=== PATIENT | male | born 1960 | race American Indian/Alaskan Native ===

== ENCOUNTER 2017-07-07 13:18 | Inpatient (IN) | payer MEDICARE ==
[2017-07-07 14:54] LABS: Basophils % (Auto) 0.4 % (0.0-1.8); Eosinophils % (Auto) 0.1 % (0.0-4.3); Hematocrit 38.9 % (35.5-45.6); Lymphocytes # (Auto) 1.2 K/mm3 (1.2-5.4); Lymphocytes % (Auto) 9.5 % (13.4-35.0); Mean Corpuscular HGB Conc 33 % (32-34); Mean Corpuscular Hemoglobin 33 pg (28-32); Mean Corpuscular Volume 98 fl (84-94); Monocytes # (Auto) 1.1 K/mm3 (0.0-0.8); Monocytes % (Auto) 8.5 % (0.0-7.3); Platelet Count 162 K/mm3 (140-440); Red Blood Count 3.98 M/mm3 (3.65-5.03); Red Cell Distribution Width 13.3 % (13.2-15.2)
--- NOTE | 2017-07-07 14:57 | XRay Report ---
FINAL REPORT EXAM: XR CHEST 1V AP HISTORY: DIFF BREATHING S/P FALL TECHNIQUE: Frontal chest x-ray. PRIORS: None currently available. FINDINGS: Cardiac silhouette is within normal limits. Aortic calcifications. There is no effusion. There is no pneumothorax. Focal ill-defined opacities in the right infrahilar region left retrocardiac region. Lungs appear hyperinflated and may be related to reactive airway disease or COPD. There are no suspicious osseous lesions. IMPRESSION: COPD. Atelectasis or pneumonic infiltrates in the lingula and right middle lobe.
[2017-07-07 15:04] LABS: BUN/Creatinine Ratio 18; Blood Urea Nitrogen 18 mg/dL (9-20); Calcium 9.1 mg/dL (8.4-10.2); Hemolysis Index 3
[2017-07-07] MEDS ORDERED: MORPHINE IV ONE (15:38)
--- NOTE | 2017-07-07 16:10 | XRay Report ---
FINAL REPORT EXAM: XR RIBS UNILAT 2V LT HISTORY: hypoxia, fall injury TECHNIQUE: Frontal chest x-ray. Two views left ribs. PRIORS: Chest x-ray July 07, 2017. FINDINGS: Cardiac silhouette is within normal limits. Aortic calcifications. There is no effusion. There is no pneumothorax. Focal ill-defined opacities in the right infrahilar and left retrocardiac region. Lungs appear hyperinflated and may be related to reactive airway disease or COPD. There are no suspicious osseous lesions. Six left posterior 6th-10th ribs are fracture but minimally displaced. IMPRESSION: COPD. Atelectasis or pneumonic infiltrates in the lingula and right middle lobe. Left rib fractures.
[2017-07-07] MEDS ORDERED: CLEOCIN 600 MG/50 mL 600 MG/50 ML BAG IV ONE (16:41)
[2017-07-07] MEDS ORDERED: LEVAQUIN 750MG/150ML 750 MG/150 ML BAG IV ONE (16:41)
--- NOTE | 2017-07-07 16:48 | Emergency Department Report ---
ED Shortness of Breath HPI - General Chief Complaint: Dyspnea/Respdistress Stated Complaint: TRENTON Time Seen by Provider: 07/07/17 14:08 Source: patient, EMS Mode of arrival: Wheelchair Limitations: Other - History of Present Illness Initial Comments: Patient is a 57-year-old black male who has a past medical history of dementia and HIV who is presenting with shortness of breath and left rib pain. Patient states he was walking yesterday and he fell. Patient believes that he tripped and fell I'm not that he became hypoxic and short of breath and fell. Patient is complaining of left-sided rib pain. Patient does have Jorgito wrap wrapped around his body at this time. Patient is denying any head trauma cough. Patient does states it does hurt to breathe however. Patient denies any fever nausea vomiting diarrhea abdominal pain at this time as well. - Related Data Allergies Allergy/AdvReac Type Severity Reaction Status Date / Time No Known Allergies Allergy Unverified 07/07/17 13:34 ED Review of Systems ROS: Stated complaint: TRENTON Other details as noted in HPI Comment: All other systems reviewed and negative ED Past Medical Hx - Past Medical History Previous Medical History?: Yes Hx Seizures: Yes Hx Dementia: Yes Hx HIV: Yes Additional medical history: ? BRAIN INFECTION - Social History Smoking Status: Never Smoker ED Physical Exam - General Limitations: Other General appearance: alert, in no apparent distress - Head Head exam: Present: atraumatic, normocephalic - Eye Eye exam: Present: normal appearance - ENT ENT exam: Present: mucous membranes moist - Neck Neck exam: Present: normal inspection - Respiratory Respiratory exam: Present: normal lung sounds bilaterally, chest wall tenderness (patient has chest wall tenderness to the left). Absent: respiratory distress, wheezes, rales, rhonchi - Cardiovascular Cardiovascular Exam: Present: regular rate, tachycardia. Absent: systolic murmur, diastolic murmur, rubs, gallop - GI/Abdominal GI/Abdominal exam: Present: soft, normal bowel sounds. Absent: distended, tenderness, guarding - Rectal Rectal exam: Present: deferred - Extremities Exam Extremities exam: Present: normal inspection - Back Exam Back exam: Present: normal inspection - Neurological Exam Neurological exam: Present: alert, oriented X3 - Psychiatric Psychiatric exam: Present: normal affect, normal mood - Skin Skin exam: Present: warm, dry, intact, normal color. Absent: rash ED Course Vital Signs 07/07/17 07/07/17 13:34 13:47 Temperature 98.9 F Pulse Rate 124 H Respiratory 16 16 Rate Blood Pressure 133/90 O2 Sat by Pulse 97 99 Oximetry ED Medical Decision Making - Lab Data Result diagrams: 07/07/17 14:46 07/07/17 14:46 Lab Results 07/07/17 07/07/17 07/07/17 Range/Units 14:46 14:46 14:46 WBC 12.7 H (4.5-11.0) K/mm3 RBC 3.98 (3.65-5.03) M/mm3 Hgb 13.0 (11.8-15.2) gm/dl Hct 38.9 (35.5-45.6) % MCV 98 H (84-94) fl MCH 33 H (28-32) pg MCHC 33 (32-34) % RDW 13.3 (13.2-15.2) % Plt Count 162 (140-440) K/mm3 Lymph % (Auto) 9.5 L (13.4-35.0) % Graves % (Auto) 8.5 H (0.0-7.3) % Eos % (Auto) 0.1 (0.0-4.3) % Baso % (Auto) 0.4 (0.0-1.8) % Lymph # 1.2 (1.2-5.4) K/mm3 Graves # 1.1 H (0.0-0.8) K/mm3 Eos # 0.0 (0.0-0.4) K/mm3 Baso # 0.0 (0.0-0.1) K/mm3 Seg Neutrophils % 81.5 H (40.0-70.0) % Seg Neutrophils # 10.4 H (1.8-7.7) K/mm3 D-Dimer 726.58 H (0-234) ng/mlDDU Sodium 139 (137-145) mmol/L Potassium 4.6 (3.6-5.0) mmol/L Chloride 101.1 (98-107) mmol/L Carbon Dioxide 29 (22-30) mmol/L Anion Gap 14 mmol/L BUN 18 (9-20) mg/dL Creatinine 1.0 (0.8-1.5) mg/dL Estimated GFR > 60 ml/min BUN/Creatinine Ratio 18 % Glucose 108 H (75-100) mg/dL Calcium 9.1 (8.4-10.2) mg/dL - Radiology Data Radiology results: report reviewed Chest x-ray with rib series shows posterior left-sided rib fractures that are minimally displaced on ribs 6 through 10. Patient also has a right middle lobe infiltrate consistent with pneumonia or possible atelectasis. - Medical Decision Making Patient is a 57-year-old male who suffered a fall yesterday and is hurt his ribs. Patient was more hypoxic than what I would suspect from simple rib fractures before x-rays were done and that showed that the patient also has a possible pneumonic infiltrate as well. The patient's d-dimer also slightly elevated patient will undergo CT scan to rule out additional pathology. Patient lives 96% on 2 L of oxygen and is comfortable after administration of pain meds. Patient because of the severe hypoxia will be admitted to the hospital under Dr. Pride. Patient will undergo pain control as well as along PT to improve his oxygenation. Critical Care Time: Yes Critical care time in (mins) excluding proc time.: 30 Critical care attestation.: If time is entered above; I have spent that time in minutes in the direct care of this critically ill patient, excluding procedure time. ED Disposition Clinical Impression: Hypoxia Ribs, multiple fractures Qualifiers: Encounter type: initial encounter Fracture type: closed Laterality: left Qualified Code(s): S22.42XA - Multiple fractures of ribs, left side, initial encounter for closed fracture Pneumonia Qualifiers: Pneumonia type: due to unspecified organism Laterality: right Lung location: middle lobe of lung Qualified Code(s): J18.1 - Lobar pneumonia, unspecified organism Disposition: OP ADMIT IP TO THIS HOSP Is pt being admited?: Yes Does the pt Need Aspirin: No Condition: Stable Instructions: Bacterial Pneumonia (ED) Referrals: PRIMARY CARE, [Primary Care Provider] - 3-5 Days
--- NOTE | 2017-07-07 16:49 | History and Physical Report ---
History of Present Illness Chief complaint: I cant breathe History of present illness: 57 YO Male with Seizure DO, Dementia, AIDS with unknown CD4 count presents to ED for evaluation. Pt in confused and unable to provide detailed history. Pt provides limited history. Pt states that he was walking yesterday and fell down. Pt believes that he tripped, but is unable to recall the incident. Pt states that he has difficulty breathing, but is unable to recall the onset of symptoms. EMS notified, and upon arrival the patient was found to have hypoxic respiratory failure and signs of trauma to the left posterior chest. Pt transported to [facility] for further care and evaluation. Pt seen and evaluated in ED and found to have acute hypoxemic respiratory failure as well as sepsis, secondary to pneumonia, and Posterior left rib fractures. No reports of fever, chills, palpitations, NVD, productive cough, recent ill contacts. Past History Past Medical History: HIV/AIDS, seizures, other (Dementia) Past Surgical History: No surgical history, Other (reviewed) Social history: single. denies: smoking, alcohol abuse, prescription drug abuse Family history: hypertension Medications and Allergies Allergies Allergy/AdvReac Type Severity Reaction Status Date / Time No Known Allergies Allergy Unverified 07/07/17 13:34 Active Meds: Active Medications Clindamycin HCl (Cleocin 600 Mg/50 Ml) 600 mg in 50 mls @ 100 mls/hr IV ONCE ONE Stop: 07/07/17 17:10 Levofloxacin/Dextrose (Levaquin 750mg/150ml) 750 mg in 150 mls @ 100 mls/hr IV ONCE ONE Stop: 07/07/17 18:10 Review of Systems ROS unobtainable: due to mental status Exam - Constitutional Vitals: Temp Pulse Resp BP Pulse Ox 98.9 F 124 H 16 133/90 99 07/07/17 13:34 07/07/17 13:34 07/07/17 13:47 07/07/17 13:34 07/07/17 13:47 General appearance: Present: mild distress, cachectic - EENT Eyes: Present: PERRL ENT: hearing intact, clear oral mucosa - Neck Neck: Present: supple, normal ROM - Respiratory Respiratory: bilateral: diminished, rhonchi - Cardiovascular Rhythm: other (tachycardic) Heart Sounds: Present: S1 & S2. Absent: rub, click - Extremities Extremities: pulses symmetrical, No edema Peripheral Pulses: abnormal (capillary refill greater than 3.6 seconds) - Abdominal Male genitourinary: Present: normal - Integumentary Integumentary: Present: clear, dry, clammy, decreased turgor - Musculoskeletal Musculoskeletal: generalized weakness - Psychiatric Psychiatric: no intact judgment & insight, no memory intact - Neurologic Neurologic: moves all extremities, no gait normal Results - Labs CBC & Chem 7: 07/07/17 14:46 07/07/17 14:46 Labs: Abnormal lab results 07/07/17 07/07/17 07/07/17 Range/Units 14:46 14:46 14:46 WBC 12.7 H (4.5-11.0) K/mm3 MCV 98 H (84-94) fl MCH 33 H (28-32) pg Lymph % (Auto) 9.5 L (13.4-35.0) % Donley % (Auto) 8.5 H (0.0-7.3) % Donley # 1.1 H (0.0-0.8) K/mm3 Seg Neutrophils % 81.5 H (40.0-70.0) % Seg Neutrophils # 10.4 H (1.8-7.7) K/mm3 D-Dimer 726.58 H (0-234) ng/mlDDU Glucose 108 H (75-100) mg/dL Assessment and Plan - Patient Problems (1) Sepsis Current Visit: Yes Status: Acute Plan to address problem: IV antibiotics, Blood cultures, urinalysis, serial lactic acid level, IVF resuscitation, monitor uop q shift, (2) Respiratory failure Current Visit: Yes Status: Acute Qualifiers: Respiratory failure complication: hypoxia Plan to address problem: Supplemental oxygen, nebulizer therapy, NIPPV as clinically indicated, incentive spirometry (3) Pneumonia Current Visit: Yes Status: Acute Qualifiers: Pneumonia type: due to unspecified organism Laterality: right Lung location: middle lobe of lung Qualified Code(s): J18.1 - Lobar pneumonia, unspecified organism Plan to address problem: RLL Pneumonia, IV antibiotics, supplemental oxygen, blood cultures, (4) Ribs, multiple fractures Current Visit: Yes Status: Acute Qualifiers: Encounter type: initial encounter Fracture type: closed Laterality: left Qualified Code(s): S22.42XA - Multiple fractures of ribs, left side, initial encounter for closed fracture Plan to address problem: Pain control, supportive care, incentive spirometry, early ambulation. (5) HIV (human immunodeficiency virus infection) Current Visit: Yes Status: Acute Plan to address problem: continue antiretroviral therapy, (6) Encephalopathy Current Visit: Yes Status: Acute Plan to address problem: CT head, serial lactic acid, neuro checks, (7) DVT prophylaxis Current Visit: Yes Status: Acute Plan to address problem: scd to ble while in bed
[2017-07-07] MEDS ORDERED: SODIUM CHLORIDE FLUSH SYRINGE 10 ML IV PRN (16:50)
[2017-07-07] MEDS ORDERED: NACL 0.9% 1000 ML IV ONE (16:50)
[2017-07-07] MEDS ORDERED: TYLENOL PO PRN (16:50)
[2017-07-07] MEDS ORDERED: VANCOMYCIN VIAL IV ONE (16:50)
[2017-07-07] MEDS ORDERED: ZOFRAN IV PRN (16:50)
[2017-07-07] MEDS ORDERED: PROVENTIL IH PRN (16:50)
[2017-07-07] MEDS ORDERED: VANCOMYCIN PHARMACY TO DOSE IV SCH (17:00)
[2017-07-07] MEDS ORDERED: VANCOMYCIN 1,250 MG in NACL 0.9% 250ML 250 ML IV ONE (18:00)
--- NOTE | 2017-07-07 18:48 | Cat Scan Report ---
FINAL REPORT PROCEDURE: CT HEAD/BRAIN WO CON TECHNIQUE: Computerized tomography of the head was performed without contrast material. HISTORY: confusion COMPARISON: No prior studies are available for comparison. FINDINGS: Brain: There is no evidence of intracranial hemorrhage. No parenchymal hemorrhage is seen. No mass lesions or mass effect is identified. No abnormal extra-axial fluid collections or masses are seen. There is some decreased density seen in the periventricular white matter without mass effect. This is fairly symmetric and does not exhibit any mass effect consistent with gliosis probably on the basis of microvascular disease or white matter changes of aging. Ventricles: The ventricles, sulcal pattern and fissures are prominent consistent with atrophy. This is mildly asymmetric, more prominent in the right temporal right parietal and right occipital lobe. Bones: No evidence of acute fracture. Paranasal sinuses: There is opacification the left maxillary sinus and most of the ethmoid air cells. Nodular mucosal thickening visualized inferiorly in the right maxillary sinus. Frontal sinuses are partially opacified as well. There is mucosal thickening and frothy mucous in the right side of the sphenoid sinus and mild mucosal thickening in the left side of the sphenoid sinus. Mastoid air cells: clear IMPRESSION: There is evidence of moderate atrophy, mildly asymmetric more prominent on the right than the left. No acute intracranial abnormalities are identified. Extensive paranasal sinus disease as described.
--- NOTE | 2017-07-07 19:11 | Cat Scan Report ---
FINAL REPORT PROCEDURE: CT ANGIO CHEST TECHNIQUE: Computerized tomographic angiography of the chest was performed during the IV injection of iodinated nonionic contrast including image processing. The image data was postprocessed using 2-dimensional multiplanar reformatted (MPR) and 3-dimensional (MIP and/or volume rendered) techniques. HISTORY: fall chest wall trauma, hypoxia before fall, evaluate pulmonary embolus COMPARISON: No prior studies are available for comparison. FINDINGS: Pulmonary outflow tract, right and left main pulmonary arteries and their proximal branches: Clear, no filling defects seen to suggest pulmonary embolus. Pericardium: No evidence of pericardial effusion. Thoracic aorta: Atherosclerotic changes are visualized. No evidence of aneurysmal dilatation or dissection. Coronary arteries: Are unremarkable. Mediastinum and hilar regions: Nonspecific subcentimeter lymph nodes are visualized. No pathologically enlarged lymph nodes or masses are identified. Lung Box: Moderate diffuse emphysematous changes are present bilaterally. There is patchy parenchymal density visualized in the right lower lobe. Pneumonia suspected. Atelectasis could present this manner. No effusions are identified. Adjacent to the suspected infiltrate there are moderate-sized bulla present. Upper abdomen: Nonobstructing renal calculi are visualized in both kidneys. The entire kidneys are not visualized. Other: There is mild deformity of the left 6th and 7th and 8th ribs laterally which appear to represent mildly displaced fractures. There also appears to be a nondisplaced fracture through the lateral aspect of the left 5th rib. No other fractures are identified. There is moderate mid thoracic scoliosis convex to the right. IMPRESSION: No evidence of pulmonary embolus. Multiple left rib fractures as described. Patchy alveolar density right lower lobe suspicious for pneumonia. Atelectasis could present in this manner. Moderate emphysematous changes are present. Nonobstructing renal calculi visualized in both kidneys, the largest is on the right measuring up to 5.9 millimeters.
[2017-07-07] MEDS: SODIUM CHLORIDE FLUSH SYRINGE 10 ML IV SCH (22:28)
[2017-07-08] MEDS: PERCOCET 5/325 PO PRN ×3 (05:32→21:22)
[2017-07-08] MEDS: TYLENOL PO PRN ×3 (05:32→23:18)
[2017-07-08] MEDS ORDERED: VANCOMYCIN/NS 1 GM/250 ML 1 GM/250 ML BAG IV SCH (06:00)
[2017-07-08] MEDS ORDERED: VANCOMYCIN/0.45 NS 1 GM/250 ML 1 GM/250 ML BAG IV SCH (06:00)
--- NOTE | 2017-07-08 08:55 | Progress Note ---
Assessment and Plan Assessment and plan: Sepsis IV antibiotics, Blood cultures, urinalysis, serial lactic acid level, IVF resuscitation, monitor uop q shift. Consult infectious disease. Respiratory failure Supplemental oxygen, nebulizer therapy, NIPPV as clinically indicated, incentive spirometry Pneumonia RLL Pneumonia, IV antibiotics, supplemental oxygen, blood cultures, Ribs, multiple fractures Pain control, supportive care, incentive spirometry, early ambulation. HIV (human immunodeficiency virus infection) continue antiretroviral therapy, Toxic metabolic Encephalopathy CT head negative, serial lactic acid, continued neuro checks, DVT prophylaxis scd to ble while in bed History Interval history: No new complaints. Hospitalist Physical - Constitutional Vitals: Temp Pulse Resp BP Pulse Ox 102.9 F H 125 H 18 99/70 96 07/08/17 07:43 07/08/17 07:43 07/08/17 07:43 07/08/17 07:43 07/08/17 07:43 General appearance: Present: no acute distress, cachectic - EENT Eyes: Present: PERRL, EOM intact ENT: hearing intact, clear oral mucosa, dentition normal - Neck Neck: Present: supple, normal ROM - Respiratory Respiratory effort: normal Respiratory: bilateral: CTA - Cardiovascular Rhythm: regular Heart Sounds: Present: S1 & S2. Absent: gallop, rub - Extremities Extremities: no ischemia, No edema, Full ROM - Abdominal General gastrointestinal: soft, non-tender, non-distended, normal bowel sounds - Integumentary Integumentary: Present: clear, warm, dry - Neurologic Neurologic: CNII-XII intact, moves all extremities Results - Labs CBC & Chem 7: 07/07/17 14:46 07/07/17 14:46 Labs: Laboratory Last Values WBC 12.7 K/mm3 (4.5-11.0) H 07/07/17 14:46 RBC 3.98 M/mm3 (3.65-5.03) 07/07/17 14:46 Hgb 13.0 gm/dl (11.8-15.2) 07/07/17 14:46 Hct 38.9 % (35.5-45.6) 07/07/17 14:46 MCV 98 fl (84-94) H 07/07/17 14:46 MCH 33 pg (28-32) H 07/07/17 14:46 MCHC 33 % (32-34) 07/07/17 14:46 RDW 13.3 % (13.2-15.2) 07/07/17 14:46 Plt Count 162 K/mm3 (140-440) 07/07/17 14:46 Lymph % (Auto) 9.5 % (13.4-35.0) L 07/07/17 14:46 Loving % (Auto) 8.5 % (0.0-7.3) H 07/07/17 14:46 Eos % (Auto) 0.1 % (0.0-4.3) 07/07/17 14:46 Baso % (Auto) 0.4 % (0.0-1.8) 07/07/17 14:46 Lymph # 1.2 K/mm3 (1.2-5.4) 07/07/17 14:46 Loving # 1.1 K/mm3 (0.0-0.8) H 07/07/17 14:46 Eos # 0.0 K/mm3 (0.0-0.4) 07/07/17 14:46 Baso # 0.0 K/mm3 (0.0-0.1) 07/07/17 14:46 Seg Neutrophils % 81.5 % (40.0-70.0) H 07/07/17 14:46 Seg Neutrophils # 10.4 K/mm3 (1.8-7.7) H 07/07/17 14:46 D-Dimer 726.58 ng/mlDDU (0-234) H 07/07/17 14:46 Sodium 139 mmol/L (137-145) 07/07/17 14:46 Potassium 4.6 mmol/L (3.6-5.0) 07/07/17 14:46 Chloride 101.1 mmol/L (98-107) 07/07/17 14:46 Carbon Dioxide 29 mmol/L (22-30) 07/07/17 14:46 Anion Gap 14 mmol/L 07/07/17 14:46 BUN 18 mg/dL (9-20) 07/07/17 14:46 Creatinine 1.0 mg/dL (0.8-1.5) 07/07/17 14:46 Estimated GFR > 60 ml/min 07/07/17 14:46 BUN/Creatinine Ratio 18 % 07/07/17 14:46 Glucose 108 mg/dL (75-100) H 07/07/17 14:46 Lactic Acid 1.00 mmol/L (0.7-2.0) 07/08/17 00:32 Calcium 9.1 mg/dL (8.4-10.2) 07/07/17 14:46
[2017-07-08] MEDS ORDERED: ROCEPHIN/NS 2 GM/100 ML 2 GM/100 ML BAG IV SCH (10:00)
[2017-07-08] MEDS: SODIUM CHLORIDE FLUSH SYRINGE 10 ML IV SCH ×2 (10:08→21:22)
[2017-07-08] MEDS: ZITHROMAX 500 MG in NACL 0.9% 250ML 250 ML IV SCH (11:41)
[2017-07-08] MEDS: cefTRIAXone 2 GM in NACL 0.9% 20 ML IV SCH (11:41)
[2017-07-08] MEDS ORDERED: Fluarix Quad 2017-2018(36 MOS+ IM ONE (12:00)
[2017-07-08] MEDS ORDERED: PNEUMOVAX 23 IM ONE (12:00)
--- NOTE | 2017-07-08 16:53 | Consultation ---
History of Present Illness - Reason for Consult Consult date: 07/08/17 fever Requesting physician: SONNY CASE - History of Present Illness 57 years old male with history of Seizure DO, Dementia, AIDS with unknown CD4 count (patient is currently confused and cannot provide details); admitted on due to AMS / confusion for a week and a fall to the floor hitting his left chest a week ago. he is c/o severe left sided chest pain upon inspiration. EMS notified, and upon arrival the patient was found to have hypoxic respiratory failure and signs of trauma to the left posterior chest. In the ED, initial temperature was 98.9, heart rate 119, respirations 15, O2 sat 99, blood pressure 133/90. Temperature went up to 102.7. Initial white count 12.7. Hemoglobin 13. Platelets 167. Creatinine 1. Lactic acid 8.8. D- dimer is 726. CT of the chest showed no PE, multiple left rib fractures. Patchy alveolar infiltrate in the right lower lobe. Nonobstructive renal calculi bilaterally. Neck CT of the head showed atrophy and extensive perinasal sinusitis. Microbiology: Blood cultures: 07/07 ngtd Current Antimicrobials: azithromycin vancomycin ceftriaxone Previous Antimicrobials: Past History Past Medical History: HIV/AIDS, seizures, other (Dementia) Past Surgical History: No surgical history, Other (reviewed) Social history: single. denies: smoking, alcohol abuse, prescription drug abuse Family history: hypertension Medications and Allergies Allergies Allergy/AdvReac Type Severity Reaction Status Date / Time No Known Allergies Allergy Unverified 07/07/17 13:34 Active Meds: Active Medications Acetaminophen (Tylenol) 650 mg PO Q4H PRN PRN Reason: Pain MILD(1-3)/Fever >100.5/RENAE Last Admin: 07/08/17 09:55 Dose: 650 mg Albuterol (Proventil) 2.5 mg IH Q4HRT PRN PRN Reason: Shortness Of Breath Azithromycin 500 mg/ Sodium (Chloride) 250 mls @ 250 mls/hr IV Q24HR MIKE Last Admin: 07/08/17 11:41 Dose: 250 mls/hr Ceftriaxone Sodium 2 gm/ (Sodium Chloride) 20 mls @ 2 mls/min IV Q24HR MIKE Last Admin: 07/08/17 11:41 Dose: 2 mls/min Vancomycin HCl (Vancomycin/0.45 Ns 1 Gm/250 Ml) 1 gm in 250 mls @ 167.007 mls/ hr IV Q18H [facility] Oxycodone/Acetaminophen (Percocet 5/325) 1 tab PO Q4H PRN PRN Reason: Pain, Moderate (4-6) Last Admin: 07/08/17 14:55 Dose: 1 tab Sodium Chloride (Sodium Chloride Flush Syringe 10 Ml) 10 ml IV BID MIKE Last Admin: 07/08/17 10:08 Dose: 10 ml Sodium Chloride (Sodium Chloride Flush Syringe 10 Ml) 10 ml IV PRN PRN PRN Reason: LINE FLUSH Vancomycin HCl (Vancomycin Pharmacy To Dose) 1 each IV PKCONSULT MIKE Review of Systems ROS unobtainable: due to mental status Physical Examination - Physical Exam Narrative exam: General appearance: Alert in NAD, conversant Eyes: anicteric sclerae, moist conjunctivae; no lid-lag; PERRLA HENT: Atraumatic; oropharynx clear edentulous Neck: Trachea midline; supple, no thyromegaly or lymphadenopathy Lungs: scattered rhonchi, very tender left chest CV: RRR, Abdomen: Soft, +TTP diffusely; no masses or hepatosplenomegaly Extremities: No peripheral edema or extremity lymphadenopathy Skin: Normal temperature, turgor and texture; no rash, ulcers or subcutaneous nodules Psych: Appropriate affect, confused. Neuro: alert and oriented x2. Moving all extermities Lines: No CVL / PICC - Constitutional Vitals: Vital Signs Temp Pulse Resp BP Pulse Ox 102.9 F H 125 H 18 99/70 96 07/08/17 07:43 07/08/17 07:43 07/08/17 07:43 07/08/17 07:43 07/08/17 07:43 Temperature -Last 24 Hours Temperature 102.9 F Temperature 100.7 F Temperature 102.7 F Temperature 99.5 F Results - Labs CBC & Chem 7: 07/07/17 14:46 07/07/17 14:46 Assessment and Plan Assessment: 1) Sepsis: Present on admission, manifested by fever, tachycardia, leukocytosis , increased lactate. Etiology most likely pneumonia +/- chest trauma ? opportunistic infections 2) RLL Pneumonia: CAP? post trauma pneumonia? 3) Chest trauma after a fall / multiple rib fractures / lung contusion 4) AIDS: unknown CD/VL 5) Bilateral kidney stones non obstructed 6) Cardona sinusitis Plan: -follow-up blood cultures -obtain C-reactive protein (CRP) -continue ceftriaxone and azithromycin -stop vanco -obtain CD4/VL -obtain AFB-blood cx and cryptococcal serum antigen Thank you for your consultation, will follow up with you. Karley Lebron MD Infectious Diseases Specialist [facility] ([facility] M [phone] O [phone]
[2017-07-09] MEDS ORDERED: VANCOMYCIN/0.45 NS 1 GM/250 ML 1 GM/250 ML BAG IV SCH
[2017-07-09] MEDS: PERCOCET 5/325 PO PRN ×3 (02:49→18:06)
[2017-07-09 06:58] LABS: Basophils % (Auto) 0.3 % (0.0-1.8); Eosinophils # (Auto) 0.2 K/mm3 (0.0-0.4); Eosinophils % (Auto) 1.2 % (0.0-4.3); Hematocrit 39.8 % (35.5-45.6); Hemoglobin 13.1 gm/dl (11.8-15.2); Lymphocytes # (Auto) 1.7 K/mm3 (1.2-5.4); Mean Corpuscular HGB Conc 33 % (32-34); Mean Corpuscular Hemoglobin 33 pg (28-32); Mean Corpuscular Volume 100 fl (84-94); Monocytes # (Auto) 1.3 K/mm3 (0.0-0.8); Monocytes % (Auto) 9.7 % (0.0-7.3); Platelet Count 148 K/mm3 (140-440); Red Blood Count 3.99 M/mm3 (3.65-5.03); Red Cell Distribution Width 13.4 % (13.2-15.2)
[2017-07-09 07:26] LABS: BUN/Creatinine Ratio 20; Blood Urea Nitrogen 20 mg/dL (9-20); Calcium 8.6 mg/dL (8.4-10.2); Hemolysis Index 17
[2017-07-09] MEDS ORDERED: ATIVAN IV ONE (09:20)
[2017-07-09] MEDS ORDERED: LOPRESSOR IV ONE (09:53)
--- NOTE | 2017-07-09 10:19 | Progress Note ---
History Interval history: Patient seen and examined medical records reviewed Patient is chronically ill-looking cachectic, unresponsive Tachycardic, possible SVT and and respiratory distress Patient received adenosine , amiodarone With no significant improvement Cardiology was consulted, and medications followed Later patient briefly responded to very simple questions Vital signs reviewed Hospitalist Physical - Constitutional Vitals: Temp Pulse Resp BP Pulse Ox 98.4 F 159 H 16 102/71 97 07/09/17 09:55 07/09/17 09:55 07/09/17 09:29 07/09/17 09:55 07/09/17 09:55 General appearance: Present: no acute distress, cachectic Results - Labs CBC & Chem 7: 07/09/17 06:43 07/09/17 06:43 Labs: Laboratory Last Values WBC 13.8 K/mm3 (4.5-11.0) H 07/09/17 06:43 RBC 3.99 M/mm3 (3.65-5.03) 07/09/17 06:43 Hgb 13.1 gm/dl (11.8-15.2) 07/09/17 06:43 Hct 39.8 % (35.5-45.6) 07/09/17 06:43 MCV 100 fl (84-94) H 07/09/17 06:43 MCH 33 pg (28-32) H 07/09/17 06:43 MCHC 33 % (32-34) 07/09/17 06:43 RDW 13.4 % (13.2-15.2) 07/09/17 06:43 Plt Count 148 K/mm3 (140-440) 07/09/17 06:43 Lymph % (Auto) 12.0 % (13.4-35.0) L 07/09/17 06:43 Parmer % (Auto) 9.7 % (0.0-7.3) H 07/09/17 06:43 Eos % (Auto) 1.2 % (0.0-4.3) 07/09/17 06:43 Baso % (Auto) 0.3 % (0.0-1.8) 07/09/17 06:43 Lymph # 1.7 K/mm3 (1.2-5.4) 07/09/17 06:43 Parmer # 1.3 K/mm3 (0.0-0.8) H 07/09/17 06:43 Eos # 0.2 K/mm3 (0.0-0.4) 07/09/17 06:43 Baso # 0.0 K/mm3 (0.0-0.1) 07/09/17 06:43 Seg Neutrophils % 76.8 % (40.0-70.0) H 07/09/17 06:43 Seg Neutrophils # 10.6 K/mm3 (1.8-7.7) H 07/09/17 06:43 D-Dimer 726.58 ng/mlDDU (0-234) H 07/07/17 14:46 Sodium 139 mmol/L (137-145) 07/09/17 06:43 Potassium 4.4 mmol/L (3.6-5.0) 07/09/17 06:43 Chloride 101.1 mmol/L (98-107) 07/09/17 06:43 Carbon Dioxide 28 mmol/L (22-30) 07/09/17 06:43 Anion Gap 14 mmol/L 07/09/17 06:43 BUN 20 mg/dL (9-20) 07/09/17 06:43 Creatinine 1.0 mg/dL (0.8-1.5) 07/09/17 06:43 Estimated GFR > 60 ml/min 07/09/17 06:43 BUN/Creatinine Ratio 20 % 07/09/17 06:43 Glucose 97 mg/dL (75-100) 07/09/17 06:43 Lactic Acid 1.00 mmol/L (0.7-2.0) 07/08/17 00:32 Calcium 8.6 mg/dL (8.4-10.2) 07/09/17 06:43 C-Reactive Protein 16.80 mg/dL (0.00-1.30) H 07/08/17 20:27
[2017-07-09] MEDS ORDERED: ATIVAN IV PRN (11:00)
[2017-07-09] MEDS ORDERED: NACL 0.9% 1000 ML 1,000 ML IV SCH (11:00)
[2017-07-09] MEDS: LOPRESSOR PO SCH ×2 (11:11→22:03)
[2017-07-09] MEDS ORDERED: LOPRESSOR IV PRN (12:00)
[2017-07-09] MEDS: ZITHROMAX 500 MG in NACL 0.9% 250ML 250 ML IV SCH (12:12)
[2017-07-09] MEDS: cefTRIAXone 2 GM in NACL 0.9% 20 ML IV SCH (12:12)
[2017-07-09] MEDS: SODIUM CHLORIDE FLUSH SYRINGE 10 ML IV SCH ×2 (12:13→22:04)
--- NOTE | 2017-07-09 12:26 | Consultation ---
History of Present Illness Consult date: 07/09/17 Consult reason: tachycardia History of present illness: Cardiology was called to evaluate persistent tachycardia. ECG is showing sinus tachycardia. Patient is unresponsive, on non-rebreather with a pulse ox of 99%. Heart rate currently is 139. Patient appears hypovolemic on exam. Nurse reports that patient had a seizure like activity earlier today and was given Ativan. Head CT showing NAP but extensive paranasal sinus disease. Past History Past Medical History: HIV/AIDS, seizures, other (Dementia) Past Surgical History: No surgical history, Other (reviewed) Social history: single. denies: smoking, alcohol abuse, prescription drug abuse Family history: hypertension Medications and Allergies Allergies Allergy/AdvReac Type Severity Reaction Status Date / Time No Known Allergies Allergy Unverified 07/07/17 13:34 Active Meds: Active Medications Acetaminophen (Tylenol) 650 mg PO Q4H PRN PRN Reason: Pain MILD(1-3)/Fever >100.5/RENAE Last Admin: 07/08/17 23:18 Dose: 650 mg Albuterol (Proventil) 2.5 mg IH Q4HRT PRN PRN Reason: Shortness Of Breath Azithromycin (Zithromax) 500 mg PO QDAY [facility] Azithromycin 500 mg/ Sodium (Chloride) 250 mls @ 250 mls/hr IV Q24HR [facility] Stop: 07/09/17 13:59 Last Admin: 07/09/17 12:12 Dose: 250 mls/hr Ceftriaxone Sodium 2 gm/ (Sodium Chloride) 20 mls @ 2 mls/min IV Q24HR [facility] Last Admin: 07/09/17 12:12 Dose: 2 mls/min Sodium Chloride (Nacl 0.9% 1000 Ml) 1,000 mls @ 100 mls/hr IV DIRECT MIKE Lorazepam (Ativan) 2 mg IV Q1H PRN PRN Reason: Seizures Metoprolol Tartrate (Lopressor) 25 mg PO BID [facility] Last Admin: 07/09/17 11:11 Dose: Not Given Metoprolol Tartrate (Lopressor) 5 mg IV Q6HR PRN PRN Reason: SVT HR>125 Oxycodone/Acetaminophen (Percocet 5/325) 1 tab PO Q4H PRN PRN Reason: Pain, Moderate (4-6) Last Admin: 07/09/17 08:21 Dose: 1 tab Sodium Chloride (Sodium Chloride Flush Syringe 10 Ml) 10 ml IV BID MIKE Last Admin: 07/09/17 12:13 Dose: 10 ml Sodium Chloride (Sodium Chloride Flush Syringe 10 Ml) 10 ml IV PRN PRN PRN Reason: LINE FLUSH Review of Systems ROS unobtainable: due to mental status Physical Examination Vital Signs BP 133/90 07/07/17 13:23 General appearance: cachectic Neck: Positive: neck supple Cardiac: Positive: Tachycardia Lungs: Positive: Decreased Breath Sounds Abdomen: Positive: Soft Extremities: Absent: edema Results 07/09/17 06:43 07/09/17 06:43 CBC 07/09/17 Range/Units 06:43 WBC 13.8 H (4.5-11.0) K/mm3 RBC 3.99 (3.65-5.03) M/mm3 Hgb 13.1 (11.8-15.2) gm/dl Hct 39.8 (35.5-45.6) % Plt Count 148 (140-440) K/mm3 Lymph # 1.7 (1.2-5.4) K/mm3 [place] # 1.3 H (0.0-0.8) K/mm3 Eos # 0.2 (0.0-0.4) K/mm3 Baso # 0.0 (0.0-0.1) K/mm3 Comprehensive Metabolic Panel 07/09/17 Range/Units 06:43 Sodium 139 (137-145) mmol/L Potassium 4.4 (3.6-5.0) mmol/L Chloride 101.1 (98-107) mmol/L Carbon Dioxide 28 (22-30) mmol/L BUN 20 (9-20) mg/dL Creatinine 1.0 (0.8-1.5) mg/dL Glucose 97 (75-100) mg/dL Calcium 8.6 (8.4-10.2) mg/dL EKG interpretations - Telemetry EKG Rhythm: Sinus Tachycardia Assessment and Plan Sinus tachycardia Reflex sinus tachycardia due to underlying pneumonia, hypoxia, and hypovolemia No evidence of PE on CTA chest Altered Mental status NAP on head CT Extensive paranasal sinus disease Seizure disorder HIV Unknown CD4 count and viral load Recommendations: IV hydration Continue therapy for underlying pneumonia - ID on board Echocardiogram
--- NOTE | 2017-07-09 14:11 | Consultation ---
History of Present Illness Consult date: 07/09/17 Reason for consult: other (supraventricular tachycardia, hypoxemia) History of present illness: Couple evaluated this is a 57-year-old male, admitted to the hospital with history of recent blunt left chest trauma on 07/07/18, confusional state and hypoxemia. According to the ambulance and ED report, the patient had a fall at home on the and EMS was called for evaluation. The patient was found confused, would oximetry of 78% and evidence of trauma to his left chest. He was started on oxygen with her to the ER and then admitted. Initial CT scan of the chest failed to show any evidence of pulmonary emboli, did show extensive emphysema, left rib fractures and consolation or infiltrate on the right lower lobe. He was noted to be distress and tachycardic this morning. Consult was called with diagnosed by ventricular tachycardia and call for him to be transferred to the ICU. Patient has already been seen by cardiology-Cardiology was called to evaluate persistent tachycardia. ECG is showing sinus tachycardia. Patient is unresponsive, on non-rebreather with a pulse ox of 99%. Heart rate currently is 139. Patient appears hypovolemic on exam. Nurse reports that patient had a seizure like activity earlier today and was given Ativan. Head CT showing NAP but extensive paranasal sinus disease. Patient's symptoms improved with nonrebreather mask treatment plus IV fluids. At this point, family, the patient DO NOT RESUSCITATE and CCU transfer was canceled. Patient already on treatment for dementia and HIV. Also be seen by Dr. Patel from ID service. Called to evaluate from previously from CCM/ pulmonary standpoint. When I arrived to see the patient, he is currently on nasal cannula at 3 L/m. He is confused but easily arousable and cannot provide further history. Current oximetry on this setting is 97%, pulse is 101 BPM. Past History Past Medical History: HIV/AIDS, seizures, other (Dementia) Past Surgical History: No surgical history, Other (reviewed) Social history: single. denies: smoking, alcohol abuse, prescription drug abuse Family history: hypertension Medications and Allergies Allergies Allergy/AdvReac Type Severity Reaction Status Date / Time No Known Allergies Allergy Unverified 07/07/17 13:34 Active Meds: Active Medications Acetaminophen (Tylenol) 650 mg PO Q4H PRN PRN Reason: Pain MILD(1-3)/Fever >100.5/RENAE Last Admin: 07/08/17 23:18 Dose: 650 mg Albuterol (Proventil) 2.5 mg IH Q4HRT PRN PRN Reason: Shortness Of Breath Azithromycin (Zithromax) 500 mg PO QDAY [facility] Ceftriaxone Sodium 2 gm/ (Sodium Chloride) 20 mls @ 2 mls/min IV Q24HR [facility] Last Admin: 07/09/17 12:12 Dose: 2 mls/min Sodium Chloride (Nacl 0.9% 1000 Ml) 1,000 mls @ 100 mls/hr IV DIRECT MIKE Lorazepam (Ativan) 2 mg IV Q1H PRN PRN Reason: Seizures Metoprolol Tartrate (Lopressor) 25 mg PO BID [facility] Last Admin: 07/09/17 11:11 Dose: Not Given Metoprolol Tartrate (Lopressor) 5 mg IV Q6HR PRN PRN Reason: SVT HR>125 Oxycodone/Acetaminophen (Percocet 5/325) 1 tab PO Q4H PRN PRN Reason: Pain, Moderate (4-6) Last Admin: 07/09/17 08:21 Dose: 1 tab Sodium Chloride (Sodium Chloride Flush Syringe 10 Ml) 10 ml IV BID [facility] Last Admin: 07/09/17 12:13 Dose: 10 ml Sodium Chloride (Sodium Chloride Flush Syringe 10 Ml) 10 ml IV PRN PRN PRN Reason: LINE FLUSH Review of Systems ROS unobtainable: due to mental status Physical Examination Vital signs: Vital Signs BP 133/90 07/07/17 13:23 General appearance: no acute distress, other (cachectic-looking individual, sleepy) Eyes: non-icteric ENT: oropharynx dry Neck: supple, no JVD Ascultation: Bilateral: clear, diminished breath sounds Tactile fremitus: Left: other (tender) Gastrointestinal: normoactive bowel sounds, non-distended Integumentary: normal Extremities: no cyanosis, no edema Musculoskeletal: no deformities unable to assess Results - Laboratory Findings CBC and BMP: 07/09/17 06:43 07/09/17 06:43 PT/INR, D-dimer D-Dimer 726.58 ng/mlDDU (0-234) H 07/07/17 14:46 Abnormal lab findings: Abnormal Labs 03/1107/07/17 07/07/17 14:46 14:46 14:46 WBC 12.7 H MCV 98 H MCH 33 H Lymph % (Auto) 9.5 L [place] % (Auto) 8.5 H [place] # 1.1 H Seg Neutrophils % 81.5 H Seg Neutrophils # 10.4 H D-Dimer 726.58 H Glucose 108 H C-Reactive Protein 07/08/17 07/09/17 20:27 06:43 WBC 13.8 H MCV 100 H MCH 33 H Lymph % (Auto) 12.0 L [place] % (Auto) 9.7 H [place] # 1.3 H Seg Neutrophils % 76.8 H Seg Neutrophils # 10.6 H D-Dimer Glucose C-Reactive Protein 16.80 H - Diagnostic Findings Chest x-ray: report reviewed, image reviewed CT scan - chest: report reviewed Assessment and Plan Sinus tachycardia episode. Probably multifactorial but based on initial impression for nurses on the phone and cardiology, probably patient's dehydrated. Pain component may be present also. Hypoxemic respiratory failure. Clinically either controlled or resolved. Oximetry 97% on nasal cannula at 3 L/m Pneumonia, right lower lobe. Possibly aspiration versus CAP. See ID recommendations HIV Dementia/AMS Recommendations Continue current oxygen support Gentle fluids, hydration Follow-up ID recommendations regarding antibiotics DVT prophylaxis Pain control regarding fractures but avoid oversedation No additional pulmonary treatment recommendations at this point. family available for case discussion. Will sign off. Please reconsult if necessary.
[2017-07-09] MEDS ORDERED: CORDARONE IV ONE (14:57)
--- NOTE | 2017-07-09 15:15 | Progress Note ---
Assessment and Plan Assessment: 1) Sepsis: still fever and leukocytosis. Etiology most likely pneumonia +/- chest trauma ? opportunistic infections. CRP=16.8 2) RLL Pneumonia: CAP? post trauma pneumonia? 3) Chest trauma after a fall / multiple rib fractures / lung contusion 4) AIDS: unknown CD/VL 5) Bilateral kidney stones non obstructed 6) Cardona sinusitis Plan: -repeat CXR today -monitor mentation ? consider neuro eval / brain MRI -follow-up blood cultures -continue ceftriaxone and azithromycin -f/u CD4/VL -f/u AFB-blood cx Thank you for your consultation, will follow up with you. Karley Lebron MD Infectious Diseases Specialist [facility] M [phone] O [phone] Subjective Date of service: 07/09/17 Principal diagnosis: sepsis Interval history: Pt is somnolent, in mod resp distress on mask O2. Tmax 101.2. pt had a rapid response this am Microbiology: Blood cultures: 07/07 ngtd 07/08 ngtd Cyrpto serum antigen negative Current Antimicrobials: azithromycin 07/08 ceftriaxone 07/08 Previous Antibiotics: vancomycin Objective - Exam Narrative Exam: General appearance: somnolent in mild resp distress Eyes: anicteric sclerae, moist conjunctivae; no lid-lag; PERRLA HENT: Atraumatic; oropharynx clear edentulous Neck: Trachea midline; supple, no thyromegaly or lymphadenopathy Lungs: left decreased BS CV: RRR, Abdomen: Soft, +TTP diffusely; no masses or hepatosplenomegaly Extremities: No peripheral edema or extremity lymphadenopathy Skin: Normal temperature, turgor and texture; no rash, ulcers or subcutaneous nodules Psych: somnolent. Neuro: somnolent Lines: No CVL / PICC - Constitutional Vitals: Vital Signs Temp Pulse Resp BP Pulse Ox 98.4 F 159 H 16 102/71 97 07/09/17 09:55 07/09/17 09:55 07/09/17 09:29 07/09/17 09:55 07/09/17 09:55 Temperature -Last 24 Hours Temperature 98.4 F Temperature 100.3 F Temperature 98.5 F Temperature 99.0 F Temperature 98.8 F Temperature 101.2 F Temperature 102.1 F Temperature 99.7 F - Labs CBC & Chem 7: 07/09/17 06:43 07/09/17 06:43 Labs: Abnormal lab results 07/08/17 07/09/17 Range/Units 20:27 06:43 WBC 13.8 H (4.5-11.0) K/mm3 MCV 100 H (84-94) fl MCH 33 H (28-32) pg Lymph % (Auto) 12.0 L (13.4-35.0) % [place] % (Auto) 9.7 H (0.0-7.3) % [place] # 1.3 H (0.0-0.8) K/mm3 Seg Neutrophils % 76.8 H (40.0-70.0) % Seg Neutrophils # 10.6 H (1.8-7.7) K/mm3 C-Reactive Protein 16.80 H (0.00-1.30) mg/dL
--- NOTE | 2017-07-09 15:53 | Discharge Summary ---
Providers - Providers Date of Admission: 07/07/17 16:50 Date of discharge: 07/09/17 Attending physician: JAYSON FRANCO 07/08/17 08:53 Consult to Physician [CONS] Routine Consulting Provider: JIMI SALES Reason For Exam: pna, hiv Place consult to:: dr. mariee Notified:: Phone number called:: [phone] Was contact made?: Yes If yes, spoke with:: dr. mariee Time called:: 09:08 07/09/17 09:51 Consult to Physician [CONS] Routine Consulting Provider: HUGO MARROQUIN Reason For Exam: SVT Place consult to:: spoke with md Notified:: to 07/09/17 10:20 Consult to Physician [CONS] Routine Consulting Provider: LORENZO KATZ Reason For Exam: Critical care consult Place consult to:: DR. MIMI PALACIO Notified:: DR. JANNY ST Time called:: 14:12 Primary care physician: MILIEU COUNSELOR Hospitalization Condition: Stable Disposition: [id number] ([facility]) Time spent for discharge: 32 min Core Measure Documentation - Palliative Care Palliative Care/ Comfort Measures: Not Applicable - Core Measures Any of the following diagnoses?: none Exam - Constitutional Vitals: Temp Pulse Resp BP Pulse Ox 98.4 F 159 H 16 102/71 97 07/09/17 09:55 07/09/17 09:55 07/09/17 09:29 07/09/17 09:55 07/09/17 09:55 General appearance: Present: no acute distress, cachectic, disheveled - EENT Eyes: Present: PERRL, EOM intact - Neck Neck: Present: supple - Respiratory Respiratory effort: normal Respiratory: bilateral: diminished, rhonchi, negative: rales, wheezing - Cardiovascular Rhythm: regular (tachycardia) - Extremities Extremities: no ischemia, No edema - Abdominal General gastrointestinal: Present: soft, non-distended, normal bowel sounds - Integumentary Integumentary: Present: clear, warm - Musculoskeletal Musculoskeletal: generalized weakness - Psychiatric Psychiatric: other (unresponsive) - Neurologic Neurologic: other (unresponsive) Plan Activity: advance as tolerated Additional Instructions: Patient is being transferred to inpatient hospice . Further management per hospice medical assembler Follow up with: PRIMARY CARE, [Primary Care Provider] - 3-5 Days
[2017-07-09 20:12] VITALS: BP 103/76
[2017-07-09] MEDS ORDERED: NACL 0.9% 1000 ML ONE (22:32)
[2017-07-10] MEDS ORDERED: ZITHROMAX PO SCH (10:00)
[2017-07-10 22:54] LABS: HIV-1 RNA QN PCR 1.37 Log cps/mL
== END 2017-07-09 23:10 | disposition hospice, inpatient (51) | DRG 974 ==
LOC: ED 13:18 → 3A 16:50
PROVIDERS: ADMIT Internal Medicine; ATTEND Internal Medicine
PROC: 3E0234Z Introduction of Serum, Toxoid and Vaccine into Muscle, Percutaneous Approach (ICD-10-PCS; principal; 2017-07-08)
DX: B20 Human immunodeficiency virus [HIV] disease (principal); A41.9 Sepsis, unspecified organism; G92 Toxic encephalopathy; J18.1 Lobar pneumonia, unspecified organism; J96.91 Respiratory failure, unspecified with hypoxia; S27.329A Contusion of lung, unspecified, initial encounter; S22.42XA Multiple fractures of ribs, left side, initial encounter for closed fracture; F03.90 Unspecified dementia, unspecified severity, without behavioral disturbance, psychotic disturbance, mood disturbance, and anxiety; G40.909 Epilepsy, unspecified, not intractable, without status epilepticus; N20.0 Calculus of kidney; J32.9 Chronic sinusitis, unspecified; X58.XXXA Exposure to other specified factors, initial encounter; Y93.89 Activity, other specified; Y92.89 Other specified places as the place of occurrence of the external cause; Z82.49 Family history of ischemic heart disease and other diseases of the circulatory system; Y99.8 Other external cause status; Z23 Encounter for immunization
CPT/HCPCS: 36415; 70450; 71045; 71275; 80048; 82024; 82140; 85025; 85379; 86140; 86403; 87040; 87536; 90686; 90732; 93005; 93010; 94760; 96365; 96375; 99291; J0153; J0282; J0456; J0696; J1956; J2060; J2270; J3370; J7030; J7050; Q9967

== ENCOUNTER 2017-07-22 22:30 | Emergency (ER) | payer SELFPAY ==
--- NOTE | 2017-07-22 23:43 | Emergency Department Report ---
ED General Adult HPI - General Chief complaint: Dyspnea/Respdistress Stated complaint: [place] Time Seen by Provider: 07/22/17 22:37 Source: patient, EMS (ems notes not available at time of chart dictation), RN notes reviewed Mode of arrival: Stretcher Limitations: Altered Mental Status, Other (patient is demented and is a poor historian) - History of Present Illness Initial comments: This is a 57-year-old male. The patient is previously known to this provider. Patient recently admitted to this hospital for worsening shortness of breath and acute on chronic respiratory failure. Has a history of dementia, had a CAT scan of his chest which demonstrated multiple rib fractures during his most recent hospital admission: Other: There is mild deformity of the left 6th and 7th and 8th ribs laterally which appear to represent mildly displaced fractures. There also appears to be a nondisplaced fracture through the lateral aspect of the left 5th rib. No other fractures are identified. There is moderate mid thoracic scoliosis convex to the right. The patient is brought to the ER by EMS for evaluation. As per verbal report from EMS, "the patient got scared at home and wanted to come in and get checked out." The patient admits to acute on chronic left-sided chest wall pain where his multiple rib fractures are, he reports that he doesn't think he's fallen, he has chronic shortness of breath which is not new, worsening or different. There is no family available for collateral information at this time. -: Sudden Improves with: rest Worsens with: movement Associated Symptoms: denies other symptoms, confusion - Related Data Allergies Allergy/AdvReac Type Severity Reaction Status Date / Time No Known Allergies Allergy Unverified 07/07/17 13:34 ED Review of Systems ROS: Stated complaint: TR[place] Other details as noted in HPI Constitutional: denies: fever Eyes: denies: eye discharge ENT: denies: epistaxis Respiratory: SOB at rest (chronic) Cardiovascular: other (chest wal pain) Gastrointestinal: denies: vomiting Genitourinary: denies: dysuria Neurological: confusion ED Past Medical Hx - Past Medical History Previous Medical History?: Yes Hx Seizures: Yes Hx Dementia: Yes Hx HIV: Yes Additional medical history: BRAIN INFECTION - Surgical History Past Surgical History?: No - Social History Smoking Status: Never Smoker Substance Use Type: None ED Physical Exam - General Limitations: Other (patient is demented, patient is a poor historian) General appearance: alert, in no apparent distress - Head Head exam: Present: atraumatic, normocephalic - Eye Eye exam: Present: normal appearance, EOMI. Absent: nystagmus - ENT ENT exam: Present: normal exam, normal orophraynx, mucous membranes moist, normal external ear exam - Neck Neck exam: Present: normal inspection, full ROM - Respiratory Respiratory exam: Present: normal lung sounds bilaterally, chest wall tenderness. Absent: respiratory distress - Cardiovascular Cardiovascular Exam: Present: regular rate, normal rhythm, normal heart sounds. Absent: bradycardia, tachycardia, irregular rhythm, systolic murmur, diastolic murmur, rubs, gallop - GI/Abdominal GI/Abdominal exam: Present: soft, normal bowel sounds. Absent: distended, tenderness, guarding, rebound, rigid, pulsatile mass - Rectal Rectal exam: Present: deferred - Extremities Exam Extremities exam: Present: normal inspection, full ROM, normal capillary refill. Absent: pedal edema, joint swelling, calf tenderness - Back Exam Back exam: Present: normal inspection, full ROM. Absent: tenderness, CVA tenderness (R), paraspinal tenderness, vertebral tenderness - Neurological Exam Neurological exam: Present: alert (patient is alert to name, location. Patient has chronic dementia), CN II-XII intact, other (Extraocular movements intact. Tongue midline. No facial droop. Facial sensation intact to light touch in the V1, V2, V3 distribution bilaterally. 5 and 5 strength in 4 extremities.. Sensation is intact to light touch in 4 extremities.). Absent: motor sensory deficit - Psychiatric Psychiatric exam: Present: normal affect, normal mood - Skin Skin exam: Present: warm, dry, intact, normal color. Absent: rash ED Course Vital Signs 07/22/17 07/22/17 22:51 23:13 Temperature 98.2 F Pulse Rate 106 H 94 H Respiratory 18 18 Rate Blood Pressure 139/94 O2 Sat by Pulse 97 97 Oximetry ED Medical Decision Making - Lab Data Vital Signs 07/22/17 07/22/17 22:51 23:13 Temperature 98.2 F Pulse Rate 106 H 94 H Respiratory 18 18 Rate Blood Pressure 139/94 O2 Sat by Pulse 97 97 Oximetry - EKG Data -: EKG Interpreted by Md - EKG Data 07/23/17 01:55 Motion artifact, sinus, 90 bpm, not having chest pain at this time, nonspecific , not consistent with a STEMI - Radiology Data Radiology results: report reviewed, image reviewed Print Report Referring Physician: GERRY CAAL Patient Name: MARY ALICE GOMES Date of : 1960 Sex: Male Report Date: 2017-07-07 Report Status: Finalized Findings [facility] [address] [place] [address] Cat Scan Report Signed Patient: MARY ALICE GOMES MR#: [id number] : 1960 Acct:[id number] Age/Sex: 57 / M ADM Date: 07/07/17 Loc: 3A A353-[address]: ELINA JAMES MD Ordering Physician: GERRY CAAL MD Date of Service: 07/07/17 Procedure(s): CT angio chest Accession Number(s): [id number] cc: GERRY CAAL MD FINAL REPORT PROCEDURE: CT ANGIO CHEST TECHNIQUE: Computerized tomographic angiography of the chest was performed during the IV injection of iodinated nonionic contrast including image processing. The image data was postprocessed using 2-dimensional multiplanar reformatted (MPR) and 3-dimensional (MIP and/or volume rendered) techniques. HISTORY: fall chest wall trauma, hypoxia before fall, evaluate pulmonary embolus COMPARISON: No prior studies are available for comparison. FINDINGS: Pulmonary outflow tract, right and left main pulmonary arteries and their proximal branches: Clear, no filling defects seen to suggest pulmonary embolus. Pericardium: No evidence of pericardial effusion. Thoracic aorta: Atherosclerotic changes are visualized. No evidence of aneurysmal dilatation or dissection. Coronary arteries: Are unremarkable. Mediastinum and hilar regions: Nonspecific subcentimeter lymph nodes are visualized. No pathologically enlarged lymph nodes or masses are identified. Lung Box: Moderate diffuse emphysematous changes are present bilaterally. There is patchy parenchymal density visualized in the right lower lobe. Pneumonia suspected. Atelectasis could present this manner. No effusions are identified. Adjacent to the suspected infiltrate there are moderate-sized bulla present. Upper abdomen: Nonobstructing renal calculi are visualized in both kidneys. The entire kidneys are not visualized. Other: There is mild deformity of the left 6th and 7th and 8th ribs laterally which appear to represent mildly displaced fractures. There also appears to be a nondisplaced fracture through the lateral aspect of the left 5th rib. No other fractures are identified. There is moderate mid thoracic scoliosis convex to the right. IMPRESSION: No evidence of pulmonary embolus. Multiple left rib fractures as described. Patchy alveolar density right lower lobe suspicious for pneumonia. Atelectasis could present in this manner. Moderate emphysematous changes are present. Nonobstructing renal calculi visualized in both kidneys, the largest is on the right measuring up to 5.9 millimeters. Transcribed By: DAPHNEY Dictated By: JESSICA ROY MD Electronically Authenticated By: JESSICA ROY MD Signed Date/Time: 07/07/171905 - Medical Decision Making Differential diagnosis, including but not limited to: General medical evaluation , medical screening exam, subacute rib fractures Assessment and plan:: 57-year-old male who was recently admitted to the hospital and subsequently placed on hospice for multiple issues, now with left- sided chest wall pain. Afebrile with reassuring vital signs, x-ray chest interpretation is appreciated, patient had multiple rib fractures that were demonstrated on the CAT scan 2 weeks ago. He is watching TV in no distress, does not have focal pulmonary findings, was also treated for community-acquired pneumonia on his last admission. There does not appear to be an emergent condition at this time that requires hospitalization, based on his previous history and physical, as well as previous imaging, it is mild pain with the patient does not require repeat CAT scan of his chest at this time, and he can follow up expectantly as an outpatient. Critical care attestation.: If time is entered above; I have spent that time in minutes in the direct care of this critically ill patient, excluding procedure time. ED Disposition Clinical Impression: Ribs, multiple fractures Disposition: DC-01 TO HOME OR SELFCARE Is pt being admited?: No Does the pt Need Aspirin: No Condition: Stable Instructions: Rib Fracture (ED) Additional Instructions: Continue outpatient medications. Patient has known chronic rib fractures which have been present since beginning of the month. Patient should continue his current outpatient medications and follow-up with an outpatient primary care doctor within the next week. Return to the ER right away with lethargy, irritability, projectile vomiting, change in mental status, confusion, inability to tolerate liquid feeds, new, worsening or different symptoms. Referrals: PRIMARY CARE, [Primary Care Provider] - 3-5 Days MANDI ZAMORANO MD [Staff Physician] - 3-5 Days
--- NOTE | 2017-07-23 01:07 | XRay Report ---
FINAL REPORT PROCEDURE: XR CHEST 1V AP TECHNIQUE: Chest radiograph anteroposterior view. CPT 94201 HISTORY: Chest wall pain. COMPARISON: Chest radiograph dated 07/07/2017. FINDINGS: Heart: Mild cardiomegaly. Mediastinum/Vessels: Mild aortic tortuosity. Lungs/Pleural space: Mild hyperinflation. Mild bibasilar opacities. Bony thorax: Mild osteopenia with degenerative changes of spine and shoulders. Mild dextroscoliotic curvature. At least 4th through 8th minimally displaced left-sided rib fractures. Small amount of subjacent extrapleural hematoma. Life support devices: None. IMPRESSION: Mild hyperinflation suggests obstructive physiology. Mild bibasilar opacities, consider atelectasis or pneumonitis. Several left-sided rib fractures with small amount of subjacent extrapleural hematoma. Patient's chin obscures left apex. Recommend PA and lateral chest radiograph or even chest CT if there is concern for subtle pneumothorax that may not be apparent on this limited portable exam.
[2017-07-23 08:11] VITALS: BP 111/71
== END 2017-07-23 08:30 | disposition home or self-care (01) ==
LOC: ED 22:30
DX: S22.41XA Multiple fractures of ribs, right side, initial encounter for closed fracture (principal); X58.XXXA Exposure to other specified factors, initial encounter; Y93.89 Activity, other specified; Y92.89 Other specified places as the place of occurrence of the external cause; Y99.8 Other external cause status
CPT/HCPCS: 71045; 93005; 93010; 99284